=== PATIENT | male | born 1990 | race Two or more races ===

== ENCOUNTER 2021-11-24 12:04 | Emergency (ER) | payer OTHER ==
[~2021-11-24] VITALS: Ht 177.8 cm; Wt 87.0 kg
[2021-11-24 13:03] VITALS: BP 139/99
== END 2021-11-24 19:44 | disposition left against medical advice (07) ==
LOC: ER 12:04
DX: M79.605 Pain in left leg (principal); Z53.21 Procedure and treatment not carried out due to patient leaving prior to being seen by health care provider